=== PATIENT | female | born 1945 | race Caucasian/White ===

== ENCOUNTER 2016-09-26 10:31 | Outpatient (CLI) | payer MEDICARE, OTHER | END 2016-09-26 10:32 | disposition home or self-care (01) | LOC: HPCALD 10:31 | PROVIDERS: ATTEND Family Medicine | DX: E78.2 Mixed hyperlipidemia (principal); R25.2 Cramp and spasm; G25.81 Restless legs syndrome | CPT/HCPCS: 36415; 80061; 82550; 82728 ==

== ENCOUNTER 2016-12-25 10:38 | Outpatient (CLI) | payer MEDICARE, OTHER ==
[2016-12-25 11:44] LABS: ALT (SGPT) 30 U/L (8-55); AST (SGOT) 20 U/L (5-34); Albumin 4.7 g/dL (3.4-4.8); Alkaline Phosphatase 49 U/L (40-150); Anion Gap 13 mmol/L (10-20); BUN (Urea Nitrogen) 25 mg/dL (9.8-20.1); Bilirubin, Total 0.6 mg/dL (0.2-1.2); Calc. Creatinine Clearance 0 mL/min (70-130); Calcium 9.7 mg/dL (7.8-10.44); Carbon Dioxide 26 mmol/L (23-31); Cardiac Risk 3.3 (Less than 4.5); Chloride 100 mmol/L (98-107); Cholesterol 167 mg/dL (< 200 Desired); Estimated GFR-MDRD 52; Globulin 2.5 g/dL (2.4-3.5); Glucose 110 mg/dL (80-115); HDL Cholesterol 50 mg/dL (>60 Neg Risk); LDL Cholesterol, Calculated 90 mg/dL; Potassium 4.3 mmol/L (3.5-5.1); Protein, Total 7.2 g/dL (5.8-8.1); Sodium 135 mmol/L (136-145); Triglycerides 136 mg/dL (Less than 150)
[2016-12-25 11:49] LABS: Hemoglobin A1c 6.1 % (4.0-6.0)
[2016-12-25 12:07] LABS: #Basophils 0.1 thou/uL (0.0-0.2); #Eosinphils 0.1 thou/uL (0.0-0.7); #Monocytes 0.6 thou/uL (0.11-0.59); #Neutrophils 3.4 thou/uL (1.40-6.50); %Eosinophils 1.2 % (0.0-10.0); %Lymphocytes 41.7 % (21.0-51.0); %Monocytes 8.8 % (0.0-10.0); %Neutrophils 47.2 % (42.0-75.0); Hemoglobin 13.6 g/dL (12.0-16.0); Mean Corpuscular HGB CONC 35.2 g/dL (32.0-36.0); Mean Corpuscular Hemoglobin 34.5 pg (27.0-31.0); Mean Platelet Volume 6.9 fL (7.4-10.4); Platelet Count 283 thou/uL (130-400); Red Blood Cell (RBC) Count 3.94 mill/uL (4.20-5.40); White Blood Cell (WBC) Count 7.2 thou/uL (4.8-10.8)
[2016-12-25 12:41] LABS: Lymphocytes 35 % (21-51); MDiff Complete? YES; Monocytes 9 % (0-10); Neutrophil 56 % (42-75)
== END 2016-12-25 10:39 | disposition home or self-care (01) ==
LOC: HPCALD 10:38
PROVIDERS: ATTEND Family Medicine
DX: E11.9 Type 2 diabetes mellitus without complications (principal); I10 Essential (primary) hypertension; E78.2 Mixed hyperlipidemia
CPT/HCPCS: 36415; 80053; 80061; 83036; 85025

== ENCOUNTER 2017-02-10 16:04 | Outpatient (CLI) | payer MEDICARE, OTHER ==
[2017-02-10 17:16] LABS: ALT (SGPT) 32 U/L (8-55); AST (SGOT) 19 U/L (5-34); Albumin 4.6 g/dL (3.4-4.8); Alkaline Phosphatase 51 U/L (40-150); Anion Gap 18 mmol/L (10-20); BUN (Urea Nitrogen) 23 mg/dL (9.8-20.1); Bilirubin, Total 0.6 mg/dL (0.2-1.2); Calc. Creatinine Clearance 0 mL/min (70-130); Calcium 9.7 mg/dL (7.8-10.44); Carbon Dioxide 21 mmol/L (23-31); Chloride 98 mmol/L (98-107); Estimated GFR-MDRD 39; Globulin 3.2 g/dL (2.4-3.5); Glucose 109 mg/dL (80-115); Potassium 4.7 mmol/L (3.5-5.1); Protein, Total 7.8 g/dL (6.0-8.3); Sodium 132 mmol/L (136-145)
== END 2017-02-10 16:05 | disposition home or self-care (01) ==
LOC: HPCALD 16:04
PROVIDERS: ATTEND Family Medicine
DX: R60.9 Edema, unspecified (principal); M79.604 Pain in right leg
CPT/HCPCS: 36415; 80053; 83880; 85379

== ENCOUNTER 2018-09-28 10:15 | Emergency (ER) | payer MEDICARE, OTHER ==
[2018-09-28 10:33] LABS: Bilirubin Negative (Negative); Blood, Urine Moderate (Negative); Clarity Cloudy (Clear); Glucose, Urine (Dipstick) Negative (Negative); Leukocyte Large (Negative); Nitrite Negative (Negative); Protein, Urine (Dipstick) Negative (Neg-Trace); Specific Gravity, Urine 1.015 (1.005-1.030); Urobilinogen 0.2 mg/dL (0.2-1.0)
[2018-09-28 10:39] LABS: Bacteria/HPF 2+ HPF (None Seen); Oval Fat Bodies/HPF 1+ HPF (None Seen); RBC/HPF 0-3 HPF (0-3); Renal Epithelial 0-3 HPF (0-3); Squamous Epithelial 0-3 HPF (0-3); Transitional Epithelial 0-3 HPF (0-3)
[2018-09-28 10:40] LABS: Crystals/HPF 1+ AMORPH URATES HPF (Negative)
[2018-09-28] MEDS ORDERED: Sulfameth/Trimethoprim DS 800-160mg TAB ONE (10:46)
== END 2018-09-28 10:50 | disposition home or self-care (01) ==
LOC: BURERS 10:15
DX: N39.0 Urinary tract infection, site not specified (principal); E11.9 Type 2 diabetes mellitus without complications; E78.5 Hyperlipidemia, unspecified; I10 Essential (primary) hypertension; Z79.899 Other long term (current) drug therapy; Z79.84 Long term (current) use of oral hypoglycemic drugs; Z79.82 Long term (current) use of aspirin; Z79.51 Long term (current) use of inhaled steroids
CPT/HCPCS: 81003; 81015; 87077; 87086; 87186; 99283

== ENCOUNTER 2019-01-01 09:08 | Outpatient (CLI) | payer MEDICARE, OTHER ==
--- NOTE | 2019-01-01 13:03 | RAD ---
RIGHT RIBS: 01/01/2019 FINDINGS: Multiple views show no evidence of fracture or bony destruction. The ribs appear intact. The adjace nt right lung is clear. There are no effusions. IMPRESSION: No acute finding. POS: [facility]
== END 2019-01-01 09:09 | disposition home or self-care (01) ==
LOC: BURRAD 09:08
PROVIDERS: ATTEND Family Medicine
DX: R07.81 Pleurodynia (principal)

== ENCOUNTER 2021-05-01 12:17 | Outpatient (CLI) | payer MEDICARE, OTHER | END 2021-05-01 12:18 | disposition home or self-care (01) | LOC: BURRAD 12:17 | PROVIDERS: ATTEND Registered Nurse Community Health | DX: S41.152A Open bite of left upper arm, initial encounter (principal) ==

== ENCOUNTER 2025-08-23 09:05 | Outpatient (CLI) | payer MEDICARE, OTHER | END 2025-08-23 09:06 | disposition home or self-care (01) | LOC: BURRAD 09:05 | PROVIDERS: ATTEND Nurse Practitioner Family | DX: M25.512 Pain in left shoulder (principal) ==